=== PATIENT | male | born 1975 | race Caucasian/White ===

== ENCOUNTER 2018-06-12 19:55 | Emergency (ER) | payer SELFPAY ==
[2018-06-12 20:02] VITALS: BP 155/89
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
== END 2018-06-12 20:25 | disposition home or self-care (01) ==
DX: Z02.89 Encounter for other administrative examinations (principal); S00.01XA Abrasion of scalp, initial encounter; Y99.9 Unspecified external cause status; Y92.009 Unspecified place in unspecified non-institutional (private) residence as the place of occurrence of the external cause